=== PATIENT | female | born 1955 | race Caucasian/White ===

== ENCOUNTER 2020-09-02 08:14 | Emergency (ER) | payer SELFPAY ==
[2020-09-02 08:49] LABS: Absolute Lymphocytes (CBC) 1.1 K/uL (0.7-4.9); Basophils % 0.4 % (0-1.3); Hematocrit 36.9 % (36.0-45.0); Lymphocytes % 26.7 % (15.3-44.8); MPV 8.8 fL (7.6-11.3); RBC Red Blood Cell Count 4.09 M/uL (3.86-4.86)
[2020-09-02] MEDS ORDERED: ONDANSETRON 4 MG/2 ML VIAL ONE (08:56)
[2020-09-02] MEDS ORDERED: NA CHLORIDE 0.9% 1,000 ML ONE (08:56)
[2020-09-02 09:10] LABS: Potassium 3.6 mmol/L (3.5-5.1)
--- NOTE | 2020-09-02 09:29 | RAD REPORT ---
EXAM DESCRIPTION: RAD - Chest Single View - 09/02/2020 9:03 am CLINICAL HISTORY: COVID +, mild sob COMPARISON: None TECHNIQUE: AP portable chest image was obtained 09/02/2020 9:03 am . FINDINGS: No dense mass or consolidation. Baseline studies shows minimal prominence of the interstit ial pattern with a few small patchy alveolar opacities present. Given the provided history, a mild CO VID-19 pneumonia would be a primary consideration. Heart and vasculature are normal. No measurable pleural effusion and no pneumothorax. No acute bony abnormality seen. No acute aortic findings suspected. IMPRESSION: Minimal interstitial and alveolar opacities are present with no dense mass or consolidat ion. Provided history indicates positive COVID test. A mild COVID pneumonia would be the primary considera tion.
--- NOTE | 2020-09-02 09:46 | EDPHYS ---
Physician Documentation [facility] Name: Kiki Velasquez Age: 64 yrs Sex: Female : 1955 Arrival Date: 09/02/2020 Time: 08:16 Bed 8 Private MD: ED Physician Munir Stroud HPI: 09/02 09:39 This 64 yrs old Female presents to ER via Ambulatory with complaints of Covid rn +, Nausea. 09:39 The patient presents to the emergency department with nausea. Onset: The rn symptoms/episode began/occurred 1 week(s) ago. Possible causes: COVID. The symptoms are aggravated by nothing. The symptoms are alleviated by nothing. Associated signs and symptoms: Pertinent positives: nausea, Pertinent negatives: GI bleeding. Severity of symptoms: At their worst the symptoms were mild in the emergency department the symptoms are unchanged. The patient has not experienced similar symptoms in the past. Reports COVID +, symptoms began about 1 week ago, reports nausea and generalized weakness, no diarrhea. No abd pain. Reports mild sob. . Historical: - Allergies: 08:31 PENICILLINS; hb - PMHx: 08:31 Hypertension; hb - Immunization history:: Adult Immunizations up to date. - Social history:: Smoking status: Patient denies any tobacco usage or history of. - Family history:: not pertinent. - Hospitalizations: : No recent hospitalization is reported. ROS: 09:39 Constitutional: Negative for chills, and weight loss, Eyes: Negative for injury, pain, rn redness, and discharge, ENT: Negative for injury, pain, and discharge, Neck: Negative for injury, pain, and swelling, Cardiovascular: Negative for chest pain, palpitations, and edema, Respiratory: Negative for wheezing, and pleuritic chest pain, Abdomen/GI: Negative for abdominal pain, vomiting, diarrhea, and constipation, Back: Negative for injury and pain, : Negative for injury, bleeding, discharge, and swelling, MS/Extremity: Negative for injury and deformity, Skin: Negative for injury, rash, and discoloration, Neuro: Negative for headache, numbness, tingling, and seizure. Exam: 09:39 Constitutional: This is a well developed, well nourished patient who is awake, alert, rn and in no acute distress. Head/Face: Normocephalic, atraumatic. Eyes: Pupils equal round and reactive to light, extra-ocular motions intact. Lids and lashes normal. Conjunctiva and sclera are non-icteric and not injected. Cornea within normal limits. Periorbital areas with no swelling, redness, or edema. ENT: dry MM, no stridor Cardiovascular: Regular rate and rhythm. No pulse deficits. Respiratory: No increased work of breathing, no retractions or nasal flaring. Abdomen/GI: soft, non-tender Skin: Warm, dry MS/ Extremity: Pulses equal, no cyanosis. Neuro: Awake and alert, GCS 15 Vital Signs: 08:29 BP 142 / 74; Pulse 88; Resp 17; Temp 97.9; Pulse Ox 96% on R/A; Pain 3/10; hb 09:30 BP 134 / 65; Pulse 81; Resp 15; Pulse Ox 95% ; hb MDM: 08:21 Patient medically screened. rn 09:39 Differential diagnosis: viral gastroenteritis, gastroenteritis, COVID, dehydration. rn Data reviewed: vital signs, nurses notes, lab test result(s), radiologic studies, plain films, and as a result, I will discharge patient. Counseling: I had a detailed discussion with the patient and/or guardian regarding: the historical points, exam findings, and any diagnostic results supporting the discharge/admit diagnosis, lab results, radiology results, the need for outpatient follow up, to return to the emergency department if symptoms worsen or persist or if there are any questions or concerns that arise at home. Response to treatment: the patient's symptoms have mildly improved after treatment, and as a result, I will discharge patient. Special discussion: I discussed with the patient/guardian in detail that at this point there is no indication for admission to the hospital. It is understood, however, that if the symptoms persist or worsen the patient needs to return immediately for re-evaluation. ED course: Improved after fluids, stable vitals, no oxygen requirement, mild COVID on xray with mild covid findings on xray. Will dc home with prn zofran. . 09/02 08:33 Order name: CBC with Diff; Complete Time: 09:07 rn 09/02 08:33 Order name: Basic Metabolic Panel; Complete Time: 09:30 rn 09/02 08:33 Order name: IV Start; Complete Time: 08:43 rn 09/02 08:33 Order name: XRAY Chest (1 view); Complete Time: 09:30 rn Administered Medications: 08:44 Drug: NS 0.9% 1000 ml Route: IV; Rate: 1000 ml; Site: right wrist; hb 09:30 Follow up: Response: No adverse reaction; IV Status: Completed infusion; IV Intake: hb 1000ml 08:44 Drug: Zofran (Ondansetron) 4 mg Route: IVP; Site: right wrist; hb 09:10 Follow up: Response: No adverse reaction hb Disposition: 09/02/20 09:45 Discharged to Home. Impression: Coronavirus infection, unspecified, Nausea, Dehydration. - Condition is Stable. - Discharge Instructions: Dehydration, Adult, Nausea, Adult, COVID-19. - Prescriptions for Zofran ODT 4 mg Oral tablet,disintegrating - place 1 tablet by TRANSLINGUAL route every 8 hours As needed; 20 tablet. - Medication Reconciliation Form, Thank You Letter, Antibiotic Education, Prescription Opioid Use form. - Follow up: Private Physician; When: As needed; Reason: Recheck today's complaints, Re-evaluation by your physician. - Problem is new. - Symptoms have improved. Signatures: Dispatcher [employer] EDMS Munir Stroud MD MD rn Baxter, Heather, RN RN Corrections: (The following items were deleted from the chart) 10:04 09:45 09/02/2020 09:45 Discharged to Home. Impression: Coronavirus infection, hb unspecified; Nausea; Dehydration. Condition is Stable. Forms are Medication Reconciliation Form, Thank You Letter, Antibiotic Education, Prescription Opioid Use. Follow up: Private Physician; When: As needed; Reason: Recheck today's complaints, Re-evaluation by your physician. Problem is new. Symptoms have improved. rn
--- NOTE | 2020-09-02 09:46 | ER ---
Nurse's Notes [facility] Name: Kiki Velasquez Age: 64 yrs Sex: Female : 1955 Arrival Date: 09/02/2020 Time: 08:16 Bed 8 Private MD: Diagnosis: Coronavirus infection, unspecified;Nausea;Dehydration Presentation: 09/02 08:29 Chief complaint: Fever, chills, generalized weakness, malaise, sore throat, N/V/D x 1 hb week. Tested COVID and strep + 08/18. Tolerating fluids. Coronavirus screen: Client presents with at least one sign or symptom that may indicate coronavirus-19. Standard/surgical mask placed on the client. Provider contacted for isolation considerations. Client reports previous positive COVID test result. Date of collection: August 28, 2020. Ebola Screen: No symptoms or risks identified at this time. Initial Sepsis Screen: Does the patient meet any 2 criteria? No. Patient's initial sepsis screen is negative. Does the patient have a suspected source of infection? No. Patient's initial sepsis screen is negative. Risk Assessment: Do you want to hurt yourself or someone else? Patient reports no desire to harm self or others. Onset of symptoms was August 26, 2020. 08:29 Method Of Arrival: Ambulatory hb 08:29 Acuity: DC 3 hb Triage Assessment: 08:31 General: Appears in no apparent distress. Behavior is calm, cooperative. Pain: Pain hb currently is 3 out of 10 on a pain scale. EENT: Reports sore throat . Neuro: Level of Consciousness is awake, alert, obeys commands, Oriented to person, place, time, situation, Reports dizziness. Cardiovascular: Patient's skin is warm and dry. Rhythm is regular. Respiratory: Reports shortness of breath on exertion Respiratory effort is even, unlabored, Respiratory pattern is regular, symmetrical. GI: Reports diarrhea, nausea, vomiting. : No signs and/or symptoms were reported regarding the genitourinary system. Derm: Skin is pink, warm \T\ dry. Musculoskeletal: No signs and/or symptoms reported regarding the musculoskeletal system. Historical: - Allergies: 08:31 PENICILLINS; hb - PMHx: 08:31 Hypertension; hb - Immunization history:: Adult Immunizations up to date. - Social history:: Smoking status: Patient denies any tobacco usage or history of. - Family history:: not pertinent. - Hospitalizations: : No recent hospitalization is reported. Screenin:33 Abuse screen: Denies threats or abuse. Denies injuries from another. Nutritional hb screening: No deficits noted. Tuberculosis screening: No symptoms or risk factors identified. Fall Risk None identified. Assessment: 08:33 General: see triage assessment . hb 09:30 Reassessment: Patient appears in no apparent distress at this time. Patient and/or hb family updated on plan of care and expected duration. Pain level reassessed. Patient is alert, oriented x 3, equal unlabored respirations, skin warm/dry/pink. Vital Signs: 08:29 BP 142 / 74; Pulse 88; Resp 17; Temp 97.9; Pulse Ox 96% on R/A; Pain 3/10; hb 09:30 BP 134 / 65; Pulse 81; Resp 15; Pulse Ox 95% ; hb ED Course: 08:16 Patient arrived in ED. ds1 08:21 Munir Storud MD is Attending Physician. rn 08:29 Cielo Martin RN is Primary Nurse. hb 08:31 Triage completed. hb 08:31 Arm band placed on. hb 08:33 Patient has correct armband on for positive identification. Bed in low position. Call hb light in reach. 08:42 Inserted saline lock: 20 gauge in right forearm, using aseptic technique. Blood mt collected. 09:03 XRAY Chest (1 view) In Process Unspecified. EDMS 09:57 No provider procedures requiring assistance completed. IV discontinued, intact, hb bleeding controlled, No redness/swelling at site. Administered Medications: 08:44 Drug: NS 0.9% 1000 ml Route: IV; Rate: 1000 ml; Site: right wrist; hb 09:30 Follow up: Response: No adverse reaction; IV Status: Completed infusion; IV Intake: hb 1000ml 08:44 Drug: Zofran (Ondansetron) 4 mg Route: IVP; Site: right wrist; hb 09:10 Follow up: Response: No adverse reaction hb Intake: 09:30 IV: 1000ml; Total: 1000ml. hb Outcome: 09:45 Discharge ordered by . rn 09:57 Discharged to home ambulatory. hb 09:57 Condition: stable 09:57 Discharge instructions given to patient, Instructed on discharge instructions, follow up and referral plans. medication usage, Demonstrated understanding of instructions, follow-up care, medications, Prescriptions given X 1. 10:04 Patient left the ED. hb Signatures: Dispatcher [employer] EDGA Madison Goff ds1 Munir Stroud MD MD rn Baxter, Heather, RN RN hb Thompson, [place]
== END 2020-09-02 10:04 | disposition home or self-care (01) ==
LOC: ER 08:14
DX: U07.1 COVID-19 (principal); E86.0 Dehydration; I10 Essential (primary) hypertension
CPT/HCPCS: 36415; 71045; 80048; 85025; 96361; 96374; 99284; J2405; J7030

== ENCOUNTER 2021-06-01 23:10 | Inpatient (IN) | payer SELFPAY ==
[2021-06-02] MEDS ORDERED: ADENOSINE 6 MG/ 2ML VIAL IV ONE (00:04)
[2021-06-02] MEDS ORDERED: NA CHLORIDE 0.9% 1,000 ML ONE (00:04)
[2021-06-02] MEDS ORDERED: METOPROLOL TARTRATE 5 MG/5 ML INJ IV ONE (00:19)
[2021-06-02 01:00] LABS: Absolute Lymphocytes (CBC) 2.9 K/uL (0.7-4.9); Lymphocytes % 32.1 % (15.3-44.8); MPV 8.6 fL (7.6-11.3); RBC Red Blood Cell Count 4.38 M/uL (3.86-4.86)
[2021-06-02] MEDS ORDERED: D5W 100 ML IV ONE (01:16)
[2021-06-02] MEDS ORDERED: AMIODARONE HCL 150 MG/3 ML INJ IV ONE ×2 (01:16→01:49)
[2021-06-02 01:18] LABS: ALT/SGPT 19 U/L (12-78); AST/SGOT 13 U/L (15-37); Albumin 3.2 g/dL (3.4-5.0); Alkaline Phosphatase 63 U/L (45-117); BUN Blood Urea Nitrogen 13 mg/dL (7-18); Bicarbonate 25 mmol/L (21-32); Bilirubin Direct < 0.1 mg/dL (0-0.2); Bilirubin Total 0.4 mg/dL (0.2-1.0); Glucose Level 116 mg/dL (74-106); Magnesium 2.1 mg/dL (1.8-2.4); NT PRO-BNP 192 pg/mL (<125); Potassium 3.4 mmol/L (3.5-5.1); Protein, Total 8.3 g/dL (6.4-8.2); Sodium Level 140 mmol/L (136-145); Troponin (Emerg Dept Use Only) < 0.02 ng/mL (0.0-0.045)
--- NOTE | 2021-06-02 01:26 | ER ---
Nurse's Notes [facility] Name: Kiki Velasquez Age: 65 yrs Sex: Female : 1955 Arrival Date: 06/01/2021 Time: 23:18 Bed 27 Private MD: Diagnosis: Atrial fibrillation with RVR, new onset Presentation: 06/01 23:35 Chief complaint: Patient states: she started having a fast irregular heart beat around bb 2100 while she was in bed it went into the 180s. Coronavirus screen: At this time, the client does not indicate any symptoms associated with coronavirus-19. Ebola Screen: No symptoms or risks identified at this time. Initial Sepsis Screen: Does the patient meet any 2 criteria? No. Patient's initial sepsis screen is negative. Does the patient have a suspected source of infection? No. Patient's initial sepsis screen is negative. Risk Assessment: Do you want to hurt yourself or someone else? Patient reports no desire to harm self or others. Onset of symptoms was June 01, 2021. 23:35 Method Of Arrival: Ambulatory 23:35 Acuity: DC 2 bb Historical: - Allergies: 06/02 00:09 PENICILLINS; bb - PMHx: 00:09 Hypertension; bb - Immunization history:: Client reports having NOT received the Covid vaccine. - Social history:: Smoking status: unknown. Screenin:26 Abuse screen: Denies threats or abuse. Denies injuries from another. Nutritional as6 screening: No deficits noted. Tuberculosis screening: No symptoms or risk factors identified. Fall Risk None identified. Assessment: 00:00 General: Appears in no apparent distress. Behavior is calm. General: Reports fatigue as6 for. Pain: Denies pain. Neuro:. Cardiovascular: Reports lightheadedness, Rhythm is atrial fibrillation with rapid ventricular response. 06:00 Reassessment: Patient and/or family updated on plan of care and expected duration. Pain as6 level reassessed. Patient states feeling better. Vital Signs: 06/01 23:35 BP 132 / 102; Pulse 168; Resp 20 S; Temp 97.9(O); Pulse Ox 97% on R/A; Weight 72.57 kg; bb Height 5 ft. 2 in. (157.48 cm); 06/02 00:45 BP 115 / 93; Pulse 134; Resp 26 S; Pulse Ox 98% on R/A; as6 02:00 BP 129 / 97; Pulse 120; Resp 17 S; Pulse Ox 98% on R/A; as6 03:00 BP 106 / 77; Pulse 112; Resp 22 S; Pulse Ox 97% on R/A; as6 04:00 BP 109 / 95; Pulse 110; Resp 17 S; Pulse Ox 97% on R/A; as6 05:00 BP 125 / 79; Pulse 101; Resp 15 S; Pulse Ox 98% on R/A; as6 06:00 BP 119 / 89; Pulse 107; Resp 15 S; Pulse Ox 99% on R/A; as6 06/01 23:35 Body Mass Index 29.26 (72.57 kg, 157.48 cm) bb ED Course: 06/01 23:18 Patient arrived in ED. wm 23:35 Arm band placed on Patient placed in an exam room, on a stretcher, on property assessment monitor, bb on pulse oximetry. 23:42 Amanuel Inman MD is Attending Physician. 7 23:54 EKG completed in triage. Results shown to MD. bb 06/02 00:00 Inserted saline lock: 18 gauge in right antecubital area, using aseptic technique. as6 Blood collected. 00:09 Triage completed. bb 00:10 XRAY Chest (1 view) In Process Unspecified. EDMS 00:25 Bruce Burgos, SILAS is Primary Nurse. as6 01:25 Candido Collins DO is Hospitalizing Provider. [facility] 07:27 Placed in gown. Bed in low position. Call light in reach. Side rails up X 1. Cardiac as6 monitor on. Pulse ox on. NIBP on. 07:50 No provider procedures requiring assistance completed. Patient admitted, IV remains in vg1 place. Administered Medications: 00:14 Drug: Adenosine 6 mg Route: IVP; Site: right antecubital; as6 07:34 Follow up: Response: No adverse reaction as6 00:16 Drug: Adenosine 12 mg Route: IVP; Site: right antecubital; as6 07:34 Follow up: Response: No adverse reaction as6 00:19 Drug: Lopressor (metoprolol) 5 mg Route: IVP; Site: right antecubital; as6 00:24 Drug: Lopressor (metoprolol) 5 mg Route: IVP; Site: right antecubital; as6 00:33 Drug: Lopressor (metoprolol) 5 mg Route: IVP; Site: right antecubital; as6 07:34 Follow up: Response: No adverse reaction as6 01:58 Drug: amiodarone 150 mg Volume: 100 ml; Route: IVPB; Infused Over: 10 mins; Site: right as6 antecubital; 07:34 Follow up: Response: No adverse reaction; IV Status: Completed infusion; IV Intake: as6 100ml 01:58 Drug: Lovenox (enoxaparin) 1 mg/kg Route: Sub-Q; Site: right lower abdomen; as6 07:34 Follow up: Response: No adverse reaction as6 02:08 Drug: amiodarone 900 mg, D5W 500 ml Route: IVPB; Rate: 1 mg/min; Site: right as6 antecubital; Intake: 07:34 IV: 100ml; Total: 100ml. as6 Outcome: 01:25 Decision to Hospitalize by Provider. [facility] 07:50 Admitted to ER Hold. Please see [facility] for further documentation. vg1 07:50 Condition: good 07:50 Instructed on the need for admit. 13:35 Patient left the ED. vg1 Signatures: Dispatcher [employer] Susannah Laughlin RN RN bb Garcia, Victoria, RN RN vg1 Amanuel Inman MD MD Brittnee Walsh Ashby, RN RN as6
--- NOTE | 2021-06-02 01:27 | EDPHYS ---
Physician Documentation [facility] Name: Kiki Velasquez Age: 65 yrs Sex: Female : 1955 Arrival Date: 06/01/2021 Time: 23:18 Bed 27 Private MD: ED Physician Amanuel Inman HPI: 06/01 23:54 This 65 yrs old Female presents to ER via Unassigned with complaints of Irregular mh7 heartrate. 23:54 The patient presents with a history of irregular heart beat, heart racing. Context: The mh7 symptoms occur during sleep. Onset: The symptoms/episode began/occurred today, at 21:30. Duration: The patient or guardian reports a single episode, that is still ongoing, and unchanged. Modifying factors: The symptoms are aggravated by nothing. The symptoms are alleviated by nothing. 23:54 Associated signs and symptoms: Pertinent negatives: anxiety, chest pain, cough, fever, mh7 lightheadedness, nausea, SOB, syncope, near-syncope, unusual stressors, vertigo, vomiting. 23:54 Severity of symptoms: At their worst the symptoms were moderate today, in the emergency 7 department the symptoms are unchanged. 23:54 The patient has not experienced similar symptoms in the past. [facility] Historical: - Allergies: 06/02 00:09 PENICILLINS; bb - PMHx: 00:09 Hypertension; bb - Immunization history:: Client reports having NOT received the Covid vaccine. - Social history:: Smoking status: unknown. ROS: 06/01 23:54 Constitutional: Negative for fever, chills, and weight loss, Eyes: Negative for injury, mh7 pain, redness, and discharge, ENT: Negative for injury, pain, and discharge, Neck: Negative for injury, pain, and swelling, Respiratory: Negative for shortness of breath, cough, wheezing, and pleuritic chest pain, Abdomen/GI: Negative for abdominal pain, nausea, vomiting, diarrhea, and constipation, Back: Negative for injury and pain, : Negative for injury, bleeding, discharge, and swelling, MS/Extremity: Negative for injury and deformity, Skin: Negative for injury, rash, and discoloration, Neuro: Negative for headache, weakness, numbness, tingling, and seizure, Psych: Negative for depression, anxiety, suicide ideation, homicidal ideation, and hallucinations, Allergy/Immunology: Negative for hives, rash, and allergies, Endocrine: Negative for neck swelling, polydipsia, polyuria, polyphagia, and marked weight changes, Hematologic/Lymphatic: Negative for swollen nodes, abnormal bleeding, and unusual bruising. Exam: 23:54 Constitutional: This is a well developed, well nourished patient who is awake, alert, mh7 and in no acute distress. Head/Face: Normocephalic, atraumatic. Eyes: Pupils equal round and reactive to light, extra-ocular motions intact. Lids and lashes normal. Conjunctiva and sclera are non-icteric and not injected. Cornea within normal limits. Periorbital areas with no swelling, redness, or edema. Neck: Trachea midline, no thyromegaly or masses palpated, and no cervical lymphadenopathy. Supple, full range of motion without nuchal rigidity, or vertebral point tenderness. No Meningismus. Chest/axilla: Normal chest wall appearance and motion. Nontender with no deformity. No lesions are appreciated. 23:54 Respiratory: Lungs have equal breath sounds bilaterally, clear to auscultation and percussion. No rales, rhonchi or wheezes noted. No increased work of breathing, no retractions or nasal flaring. Abdomen/GI: Soft, non-tender, with normal bowel sounds. No distension or tympany. No guarding or rebound. No evidence of tenderness throughout. Back: No spinal tenderness. No costovertebral tenderness. Full range of motion. Skin: Warm, dry with normal turgor. Normal color with no rashes, no lesions, and no evidence of cellulitis. MS/ Extremity: Pulses equal, no cyanosis. Neurovascular intact. Full, normal range of motion. Neuro: Awake and alert, GCS 15, oriented to person, place, time, and situation. Cranial nerves II-XII grossly intact. Motor strength 5/5 in all extremities. Sensory grossly intact. Cerebellar exam normal. Normal gait. Psych: Awake, alert, with orientation to person, place and time. Behavior, mood, and affect are within normal limits. 23:54 Cardiovascular: Rate: tachycardic, Rhythm: irregular, Pulses: no pulse deficits are appreciated, Heart sounds: normal, normal S1and S2, Edema: is not appreciated, JVD: is not appreciated. Vital Signs: 23:35 BP 132 / 102; Pulse 168; Resp 20 S; Temp 97.9(O); Pulse Ox 97% on R/A; Weight 72.57 kg; bb Height 5 ft. 2 in. (157.48 cm); 06/02 00:45 BP 115 / 93; Pulse 134; Resp 26 S; Pulse Ox 98% on R/A; as6 02:00 BP 129 / 97; Pulse 120; Resp 17 S; Pulse Ox 98% on R/A; as6 03:00 BP 106 / 77; Pulse 112; Resp 22 S; Pulse Ox 97% on R/A; as6 04:00 BP 109 / 95; Pulse 110; Resp 17 S; Pulse Ox 97% on R/A; as6 05:00 BP 125 / 79; Pulse 101; Resp 15 S; Pulse Ox 98% on R/A; as6 06:00 BP 119 / 89; Pulse 107; Resp 15 S; Pulse Ox 99% on R/A; as6 06/01 23:35 Body Mass Index 29.26 (72.57 kg, 157.48 cm) bb MDM: 01:24 Differential diagnosis: arrythmia, dehydration, stress disorder. Data reviewed: vital [facility] signs, nurses notes, old medical records, lab test result(s), cardiac enzymes, CBC, electrolytes, EKG, radiologic studies, plain films. Data interpreted: Pulse oximetry: on room air is 98 %. Interpretation: normal. Counseling: I had a detailed discussion with the patient and/or guardian regarding: the historical points, exam findings, and any diagnostic results supporting the discharge/admit diagnosis, lab results, radiology results, the need for further work-up and treatment in the hospital. Response to treatment: the patient's symptoms have mildly improved after treatment. 01:25 Patient medically screened. [facility] 06/01 23:51 Order name: Basic Metabolic Panel; Complete Time: [facility] 06/01 23:51 Order name: CBC with Diff; Complete Time: [facility] 06/01 23:51 Order name: LFT's; Complete Time: [facility] 06/01 23:51 Order name: Magnesium; Complete Time: [facility] 06/01 23:51 Order name: NT PRO-BNP; Complete Time: [facility] 06/01 23:51 Order name: PT-INR; Complete Time: 01:04 [facility] 06/01 23:51 Order name: Troponin (emerg Dept Use Only); Complete Time: 01:21 [facility] 06/01 23:51 Order name: XRAY Chest (1 view); Complete Time: 07:40 06/01 23:51 Order name: TSH; Complete Time: 01:21 [facility] 06/01 23:51 Order name: COVID-19/FLU A+B (Document "Date of Onset" if Symptomatic); Complete Time: [facility] 02:17 06/02 10:25 Order name: Urine Dipstick-Ancillary [facility] 06/02 10:37 Order name: Urinalysis [facility] 06/01 23:51 Order name: EKG; Complete Time: 23:52 [facility] 06/01 23:51 Order name: Cardiac monitoring; Complete Time: 00:34 [facility] 06/01 23:51 Order name: EKG - Nurse/Tech; Complete Time: 00:34 [facility] 06/01 23:51 Order name: IV Saline Lock; Complete Time: 00:34 [facility] 06/01 23:51 Order name: Labs collected and sent; Complete Time: 00:34 [facility] 06/01 23:51 Order name: O2 Per Protocol; Complete Time: 00:34 [facility] 06/01 23:51 Order name: O2 Sat Monitoring; Complete Time: 00:34 [facility] 06/02 01:37 Order name: CONS Physician Consult [facility] Administered Medications: 00:14 Drug: Adenosine 6 mg Route: IVP; Site: right antecubital; as6 07:34 Follow up: Response: No adverse reaction as6 00:16 Drug: Adenosine 12 mg Route: IVP; Site: right antecubital; as6 07:34 Follow up: Response: No adverse reaction as6 00:19 Drug: Lopressor (metoprolol) 5 mg Route: IVP; Site: right antecubital; as6 00:24 Drug: Lopressor (metoprolol) 5 mg Route: IVP; Site: right antecubital; as6 00:33 Drug: Lopressor (metoprolol) 5 mg Route: IVP; Site: right antecubital; as6 07:34 Follow up: Response: No adverse reaction as6 01:58 Drug: amiodarone 150 mg Volume: 100 ml; Route: IVPB; Infused Over: 10 mins; Site: right as6 antecubital; 07:34 Follow up: Response: No adverse reaction; IV Status: Completed infusion; IV Intake: as6 100ml 01:58 Drug: Lovenox (enoxaparin) 1 mg/kg Route: Sub-Q; Site: right lower abdomen; as6 07:34 Follow up: Response: No adverse reaction as6 02:08 Drug: amiodarone 900 mg, D5W 500 ml Route: IVPB; Rate: 1 mg/min; Site: right as6 antecubital; Disposition Summary: 06/02/21 01:25 Hospitalization Ordered Hospitalization Status: Inpatient Admission [facility] Provider: Candido Collins Condition: Stable [facility] Problem: new [facility] Symptoms: have improved [facility] Bed/Room Type: Standard [facility] Location: [facility] ER HOLD(06/02/21 02:37) Room Assignment: ERHOLD-(06/02/21 02:37) Diagnosis - Atrial fibrillation with RVR, new onset [facility] Forms: - Medication Reconciliation Form [facility] - SBAR form [facility] Signatures: Dispatcher [employer] EDMS Cora Schmitz RN RN mw Ballard, Brenda, RN RN bb Holmes, Maurice, MD MD 7 Bruce Burgos RN RN as6 Corrections: (The following items were deleted from the chart) 02:37 01:25 Intensive Care Unit counts include 234 beds at the [facility] 02:37 01:25 counts include 234 beds at the [facility] 04:38 01/02 23:51 Urine Dipstick-Ancillary ordered. [facility] as6
[2021-06-02] MEDS ORDERED: ENOXAPARIN 60 MG/0.6 ML SQ ONE (01:53)
[2021-06-02 01:55] LABS: SARS-COV-2 RT PCR NEGATIVE (NEGATIVE)
--- NOTE | 2021-06-02 02:47 | P.HP ---
Certification for Inpatient Patient admitted to: Inpatient With expected LOS: <2 Midnights Patient will require the following post-hospital care: None Practitioner: I am a practitioner with admitting privileges, knowledge of patient current condition, hospital course, and medical plan of care. Services: Services provided to patient in accordance with Admission requirements found in Title 42 Section 412.3 of the Code of Federal Regulations Patient History Date of Service: 06/02/21 Primary Care Provider: Ward Ac Reason for admission: atrial fibrillation History of Present Illness: Ms. Velasquez is a 65 yo F with HTN who woke up from her sleep tonight and felt heart palpitations. She says she didn't feel right so she checked her heart rate and it was 185bpm. Upon arrival, patient received two doses of adenosine. She was found to be in atrial fibrillation with RVR. She received 3 doses of IV metoprolol with minimal response so IV amiodarone drip was initiated. At bedside, she is asymptomatic and feels fine. HR is about 110. Allergies Penicillins Allergy (Unknown, Verified 06/24/12 13:24) Itching/Hives/Rash - Past Medical/Surgical History -: HTN -: appy -: C section x 3 - Family History Mother -: Heart disease Notes: atrial fibrillation Father -: Lung disease - Social History Smoking Status: Never smoker Alcohol use: No CD- Drugs: No Caffeine use: Yes Place of Residence: Home Review of Systems 10-point ROS is otherwise unremarkable General: Unremarkable Eyes: Unremarkable ENT: Unremarkable Respiratory: Unremarkable Cardiovascular: Palpitations Gastrointestinal: Unremarkable Genitourinary: Unremarkable Musculoskeletal: Unremarkable Integumentary: Unremarkable Neurological: Unremarkable Lymphatics: Unremarkable Physical Examination - Physical Exam General: Alert, In no apparent distress HEENT: Atraumatic, PERRLA, Mucous membr. moist/pink, EOMI, Sclerae nonicteric Neck: Supple, 2+ carotid pulse no bruit, No LAD, Without JVD or thyroid abnormality Respiratory: Clear to auscultation bilaterally, Normal air movement Cardiovascular: Normal S1 S2, Irregular heart rate/rhythm Gastrointestinal: Normal bowel sounds, No tenderness Musculoskeletal: No tenderness Integumentary: No rashes Neurological: Normal gait, Normal speech, Normal strength at 5/5 x4 extr, Normal tone, Normal affect Lymphatics: No axilla or inguinal lymphadenopathy - Studies Laboratory Data (last 24 hrs) 06/02/21 00:29: PT 11.5, INR 1.00 06/02/21 00:29: WBC 9.10, Hgb 13.5, Hct 40.0, Plt Count 228 06/02/21 00:29: Sodium 140, Potassium 3.4 L, BUN 13, Creatinine 0.75, Glucose 116 H, Magnesium 2.1, Total Bilirubin 0.4, AST 13 L, ALT 19, Alkaline Phosphatase 63 Assessment and Plan - Problems (Diagnosis) (1) Atrial fibrillation with RVR Current Visit: Yes Status: Acute - Plan continue amiodarone drip IV lopressor PRN full dose lovenox BID ECHO in the AM on tele cardiology consulted Discharge Plan: Home Plan to discharge in: 48 Hours - Advance Directives Does patient have a Living Will: No Does patient have a Durable POA for Healthcare: No - Code Status/Comfort Care Code Status Assessed: Yes (full code ) Critical Care: No Time Spent Managing Pts Care (In Minutes): 70
--- NOTE | 2021-06-02 07:34 | RAD REPORT ---
EXAM DESCRIPTION: RAD - Chest Single View - 06/02/2021 12:04 am CLINICAL HISTORY: PALPITATIONS COMPARISON: Chest Single View dated 09/02/2020 FINDINGS: Lines: None. Lungs: No evidence of edema or pneumonia. Pleural: No significant pleural effusions or pneumothorax. Cardiac: The heart size is within normal limits. Bones: No acute fractures. Other: IMPRESSION: No acute cardiopulmonary disease.
[2021-06-02] MEDS ORDERED: ONDANSETRON 4 MG/2 ML VIAL IV PRN (07:54)
[2021-06-02] MEDS ORDERED: ACETAMINOPHEN 500 MG TAB PO PRN (07:54)
[2021-06-02] MEDS ORDERED: METOPROLOL TARTRATE 5 MG/5 ML INJ IV PRN (07:54)
[2021-06-02 08:39] VITALS: BMI 29.2
[2021-06-02] MEDS ORDERED: AMIODARONE HCL 900 MG in Dextrose 5%-Water 482 ML IV SCH (09:00)
[2021-06-02] MEDS ORDERED: ENOXAPARIN 80 MG/0.8 ML SQ SCH ×2 (09:00→14:00)
[2021-06-02] MEDS ORDERED: AMIODARONE HCL 200 MG TAB PO SCH (09:16)
[2021-06-02] MEDS ORDERED: INFLUENZA VACCINE (for 6+ mo) 0.5 ML DOSE IMVAC ONE (10:00)
[2021-06-02 10:24] LABS: Urine Blood Negative (Negative); Urine Glucose Negative (Negative); Urine Protein Negative (Negative); Urine Specific Gravity 1.025 (1.005-1.030)
[2021-06-02 10:34] LABS: Urine Appearance CLEAR (Clear); Urine Bilirubin NEGATIVE (Negative); Urine Blood NEGATIVE (Negative); Urine Color YELLOW (Yellow); Urine Glucose NEGATIVE (Negative); Urine Protein NEGATIVE (Negative); Urine Urobilinogen 0.2 mg/dL (0.2-1.0)
[2021-06-02 10:37] LABS: Urine Microscopic Reflex NO UMIC
--- NOTE | 2021-06-02 11:31 | P.DS ---
Admission Date: 06/02/21 Discharge Date: 06/02/21 Primary Care Provider: Ward Ac Disposition: ROUTINE DISCHARGE Discharge Condition: GOOD Reason for Admission: atrial fibrillation Consultations: Cardiology-Dr. Farnsworth Procedures: COVID: Negative CXR: Unremarkable Medical Problem List: Palpitations secondary to atrial fibrillation with RVR Brief History of Present Illness: 65-year-old female with history of hypertension presented with palpitations. Patient was found to have L accelerated heart rate. Patient was seen in the ER. Patient was given adenosine initially as SVT was suspected. She was then found to have atrial fibrillation with RVR. Patient received IV metoprolol this was changed over to IV amiodarone. Patient was admitted for further evaluation and treatment. Hospital Course: Patient presented with palpitations secondary to atrial fibrillation with RVR. In the ER patient required IV amiodarone. Patient has done well. Patient converted to normal sinus rhythm this morning. Case discussed in detail with cardiology. Patient has been transitioned from IV amiodarone to oral amiodarone. Patient can be discharged home. At discharge patient will continue with amiodarone 400 mg 1 pill twice daily for 1 week then 200 mg daily. At discharge the patient will also continue with Eliquis 5 mg 1 pill twice daily. Recommend follow-up with cardiology in 1 week to follow-up his hospitalization and to monitor her care. Education on atrial fibrillation, amiodarone, Eliquis provided. Patient will also be given a list of PCPs in the area to establish care. Patient with history of hypertension. Blood pressure stable at this time. No need for medication at discharge. Patient will continue with above recommendations. Recommend to maintain blood pressure less than 130/80. If blood pressure remains above 140/90 medication may be required. This can be further addressed by cardiology or her PCP. Vital Signs/Physical Exam: Temp Pulse Resp BP Pulse Ox 66 18 122/57 L 99 06/02/21 08:00 06/02/21 08:00 06/02/21 08:00 06/02/21 08:00 General: Alert, In no apparent distress, Oriented x3, Cooperative HEENT: Atraumatic Neck: Supple Respiratory: Clear to auscultation bilaterally, Normal air movement Cardiovascular: Normal pulses, Regular rate/rhythm Gastrointestinal: Normal bowel sounds Musculoskeletal: No erythema, No tenderness, No warmth Integumentary: No tenderness/swelling, No erythema, No warmth, No cyanosis Neurological: Normal speech, Normal strength at 5/5 x4 extr, Normal tone Laboratory Data at Discharge: WBC 9.10 K/uL (4.3-10.9) 06/02/21 00:29 Hgb 13.5 g/dL (12.0-15.0) 06/02/21 00:29 Hct 40.0 % (36.0-45.0) 06/02/21 00:29 Plt Count 228 K/uL (152-406) 06/02/21 00:29 PT 11.5 SECONDS (9.5-12.5) 06/02/21 00:29 INR 1.00 06/02/21 00:29 Sodium 140 mmol/L (136-145) 06/02/21 00:29 Potassium 3.4 mmol/L (3.5-5.1) L 06/02/21 00:29 BUN 13 mg/dL (7-18) 06/02/21 00:29 Creatinine 0.75 mg/dL (0.55-1.3) 06/02/21 00:29 Glucose 116 mg/dL (74-106) H 06/02/21 00:29 Magnesium 2.1 mg/dL (1.8-2.4) 06/02/21 00:29 Total Bilirubin 0.4 mg/dL (0.2-1.0) 06/02/21 00:29 AST 13 U/L (15-37) L 06/02/21 00:29 ALT 19 U/L (12-78) 06/02/21 00:29 Alkaline Phosphatase 63 U/L (45-117) 06/02/21 00:29 Home Medications: Amiodarone HCl [Cordarone*] 400 mg PO SEECOM #45 tab 06/02/21 Apixaban [Eliquis] 5 mg PO BID #60 tablet 06/02/21 New Medications: Amiodarone HCl [Cordarone*] 400 mg PO SEECOM #45 tab Apixaban [Eliquis] 5 mg PO BID #60 tablet Physician Discharge Instructions: Patient presented with palpitations secondary to atrial fibrillation with RVR. In the ER patient required IV amiodarone. Patient has done well. Patient converted to normal sinus rhythm this morning. Case discussed in detail with cardiology. Patient has been transitioned from IV amiodarone to oral amiodarone. Patient can be discharged home. At discharge patient will continue with amiodarone 400 mg 1 pill twice daily for 1 week then 200 mg daily. At discharge the patient will also continue with Eliquis 5 mg 1 pill twice daily. Recommend follow-up with cardiology in 1 week to follow-up his hospitalization and to monitor her care. Education on atrial fibrillation, amiodarone, Eliquis provided. Patient will also be given a list of PCPs in the area to establish care. Patient with history of hypertension. Blood pressure stable at this time. No need for medication at discharge. Patient will continue with above recommendations. Recommend to maintain blood pressure less than 130/80. If blood pressure remains above 140/90 medication may be required. This can be further addressed by cardiology or her PCP. Diet: AHA Activity: Ad red Followup: NONE,NONE [Primary Care Provider] - Time spent managing pt's care (in minutes): 55
[2021-06-02 11:52] VITALS: BP 136/62; TEMP 97.9
[2021-06-02 13:00] VITALS: O2SAT 99
--- NOTE | 2021-06-03 11:19 | EKG ---
Test Date: 2021-06-02 Test Time: 08:24:07 Customer Consulting Manager: MEASUREMENT RESULTS: Intervals: Rate: 63 AK: 194 QRSD: 106 QT: 422 QTc: 431 [place]: P: 73 AK: 194 QRS: -42 T: 65 INTERPRETIVE STATEMENTS: Normal sinus rhythm Left axis deviation Incomplete right bundle branch block Cannot rule out Anterior infarct, age undetermined Abnormal ECG Compared to ECG 06/02/2021 00:59:06 Left-axis deviation now present Incomplete right bundle-branch block now present Atrial fibrillation no longer present Left anterior fascicular block no longer present Myocardial infarct finding still present Electronically Signed On 06-03-21 11:14:26 DISEASE CASE MANAGER by Salvatore Farnsworth
--- NOTE | 2021-06-03 12:53 | CON ---
Date of Consultation: 06/02/2021 Reason For Consultation: Atrial fibrillation. History Of Present Illness: Ms. Velasquez is a 65-year-old woman. She was admitted to Dr. Collins on with new onset atrial fibrillation. Her only medical history in the past is hypertension. She denied nausea, vomiting, diaphoresis, PND, orthopnea, pedal edema, or syncope. Denied any chest pain. She denied any fever or chills. When I saw her, she was in sinus rhythm after receiving IV am iodarone and asymptomatic. Past Medical History: Positive for hypertension. Review of Systems: Negative. Social History: Negative. Family History: Negative. Allergies: SHE IS ALLERGIC TO PENICILLIN. Medications: At home are none. Physical Examination: General: She is pleasant, no acute distress. Vital Signs: Sinus rhythm, afebrile. HEENT: Negative. Neck: Supple with no bruit. Chest: Clear. Cardiac: Revealed a regular rhythm and rate with an aortic sclerosis murmur. No gallops or rubs. Abdomen: Benign. Extremities: Revealed no clubbing, cyanosis, or edema. Diagnostic Data: Except for atrial fibrillation were within normal limits. Impression And Plan: New onset atrial fibrillation, resolved on IV amiodarone. I will put her on p. o. amiodarone 400 b.i.d. for a week, 200 mg daily after that. Get an echocardiogram. I think she ne eds an outpatient Lexiscan down the road, but I am comfortable with her going home whenever it is oka y with Dr. Collins. ELLY/MANUELL Voice ID: [id number] Report ID: [id number]
== END 2021-06-02 13:33 | disposition home or self-care (01) | DRG 310 ==
LOC: ER 23:10 → ERHOLD 06-02 01:45
PROVIDERS: ADMIT Family Medicine; ATTEND Family Medicine
DX: I48.91 Unspecified atrial fibrillation (principal); I10 Essential (primary) hypertension; Z88.0 Allergy status to penicillin; Z79.01 Long term (current) use of anticoagulants; Z20.822 Contact with and (suspected) exposure to COVID-19
CPT/HCPCS: 0240U; 36415; 71045; 80048; 80076; 81003; 83735; 83880; 84443; 84484; 85025; 85610; 93005; 96365; 96366; 96372; 96375; 99285; J0153; J0282; J1650; J7030; J7060